=== PATIENT | female | born 1975 | race Caucasian/White ===

== ENCOUNTER 2018-06-02 22:24 | Emergency (ER) | payer BC ==
[~2018-06-02] VITALS: Ht 165.1 cm; Wt 55.3 kg
[2018-06-02] MEDS ORDERED: NKM (22:38)
[2018-06-02 22:45] VITALS: BP 155/97
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
[2018-06-02] MEDS ORDERED: IBUPROFEN600 MG ORAL (23:07)
[2018-06-02 23:16] VITALS: BP 136/89
--- NOTE | 2018-06-02 23:16 | NUR ---
ER Nurse Note: Pt seen, treated, medically cleared for discharge by ERMD. Discharge instructions and prescriptions given with repeat verbalizaion by pt. Instructed pt to follow up with primary care physcian within one week. Pt a&ox4, VSS, no signs of distress. ID band removed. Pt left with all belongings, steady gait via own transporation.
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
== END 2018-06-02 23:16 | disposition home or self-care (01) ==
LOC: EMR 22:44
DX: S43.102A Unspecified dislocation of left acromioclavicular joint, initial encounter (principal); V43.62XA Car passenger injured in collision with other type car in traffic accident, initial encounter; Y92.410 Unspecified street and highway as the place of occurrence of the external cause
CPT/HCPCS: 99283

== ENCOUNTER 2018-10-12 02:46 | Emergency (ER) | payer BC ==
[~2018-10-12] VITALS: Ht 170.2 cm; Wt 49.9 kg
[~2018-10-12 02:46] MED LIST: IBUPROFEN600 MG ORAL; NKM
[2018-10-12] MEDS ORDERED: PROGESTERO50 MG/1 M1 IM (02:55)
[2018-10-12 03:00] VITALS: BP 155/96
--- NOTE | 2018-10-12 03:00 | NUR ---
ED Nurse Note: patient ambulated to ed c/o heavy vaginal bleeding (5 pads )x 0200. pt 6 weeks . pt had intravaginal ultrasound this morning. PT AAO X4, VSS, WITH NO SIGNS OF ACUT DISRESS. FAMILY MEMBER AT BEDSIDE.
--- NOTE | 2018-10-12 03:15 | NUR ---
ED Nurse Note: URINE COLLECTED SET DOWN TO LAB
--- NOTE | 2018-10-12 03:19 | Emergency Room Report ---
History of Present Illness General Chief Complaint: Complications Source: Patient Present Illness HPI Patient reports that she is approximately 6 weeks by an ultrasound that was done this morning vaginally by her OB physician Patient was doing well however earlier this evening started having increased vaginal bleeding She was also having some mild cramping in the lower abdomen and presents to the ER upon arrival reports that she feels somewhat better denies any chest pain or shortness of breath Denies any active abdominal pain she reports of vaginal bleeding is also decreased patient is G1, P0 and reports that she is with twins Allergies: Coded Allergies: No Known Allergies (Unverified , 06/02/18) Patient History Past Medical History: see triage record Now: Yes - 6 weeks Reviewed Nursing Documentation: PMH: Agreed; PSxH: Agreed Nursing Documentation-PMH Past Medical History: No Stated History Review of Systems All Other Systems: negative except mentioned in HPI Physical Exam Vital Signs Date Time Temp Pulse Resp B/P (MAP) Pulse Ox O2 Delivery O2 Flow Rate FiO2 10/12/18 02:50 98.8 82 22 155/96 (115) 97 Room Air Sp02 EP Interpretation: reviewed, normal General Appearance: well appearing, no apparent distress Head: normocephalic, atraumatic Eyes: bilateral eye PERRL, bilateral eye EOMI ENT: hearing grossly normal, normal pharynx, TMs + canals normal, uvula midline Neck: full range of motion, supple, no meningismus, no bony tend Respiratory: lungs clear, normal breath sounds, no rhonchi, no respiratory distress, no retraction, no accessory muscle use Cardiovascular #1: normal peripheral pulses, regular rate, rhythm, no edema, no gallop, no JVD, no murmur Gastrointestinal: normal bowel sounds, non tender, soft, no mass, no organomegaly, non-distended, no guarding, no hernia, no pulsatile mass, no rebound Genitourinary: no CVA tenderness Musculoskeletal: normal inspection Neurologic: oriented x3, responsive, real estate investment analyst III-XII nml as tested, motor strength/ tone normal, sensory intact Psychiatric: mood/affect normal Skin: no rash Lymphatic: normal inspection, no adenopathy Medical Decision Making Diagnostic Impression: Primary Impression: Threatened ER Course With the patient's history and examination, multiple differentials considered, including but not limited to , ectopic , ovarian torsion, gastritis, cholecystitis, pancreatitis, appendicitis Patient's ultrasound reveals twin gestational sac appropriately placed heart tones are seen patient's blood type is A+ not requiring any further RhoGam It was discussed regarding the possibility of signs of early Patient requires bedrest and follow-up urgently with OB physician Labs Test 10/12/18 03:58 10/12/18 04:04 White Blood Count 12.6 K/UL (4.8-10.8) Red Blood Count 4.61 M/UL (4.20-5.40) Hemoglobin 14.3 G/DL (12.0-16.0) Hematocrit 43.0 % (37.0-47.0) Mean Corpuscular Volume 93 FL (80-99) Mean Corpuscular Hemoglobin 31.0 PG (27.0-31.0) Mean Corpuscular Hemoglobin Concent 33.3 G/DL (32.0-36.0) Red Cell Distribution Width 11.5 % (11.6-14.8) Platelet Count 327 K/UL (150-450) Mean Platelet Volume 6.0 FL (6.5-10.1) Neutrophils (%) (Auto) 64.6 % (45.0-75.0) Lymphocytes (%) (Auto) 21.7 % (20.0-45.0) Monocytes (%) (Auto) 9.1 % (1.0-10.0) Eosinophils (%) (Auto) 3.7 % (0.0-3.0) Basophils (%) (Auto) 1.0 % (0.0-2.0) Sodium Level 137 MMOL/L (136-145) Potassium Level 4.7 MMOL/L (3.5-5.1) Chloride Level 104 MMOL/L (98-107) Carbon Dioxide Level 20 MMOL/L (21-32) Anion Gap 13 mmol/L (5-15) Blood Urea Nitrogen 7 mg/dL (7-18) Creatinine 0.3 MG/DL (0.55-1.30) Estimat Glomerular Filtration Rate > 60 mL/min (>60) Glucose Level 103 MG/DL (74-106) Calcium Level 9.2 MG/DL (8.5-10.1) Total Bilirubin 0.5 MG/DL (0.2-1.0) Aspartate Amino Transf (AST/SGOT) 41 U/L (15-37) Alanine Aminotransferase (ALT/SGPT) 26 U/L (12-78) Total Protein 8.0 G/DL (6.4-8.2) Albumin 3.9 G/DL (3.4-5.0) Globulin 4.1 g/dL Albumin/Globulin Ratio 1.0 (1.0-2.7) Lipase 145 U/L (73-393) Human Chorionic Gonadotropin, Quant [id number] mIU/mL (1-6) Urine Color Pale yellow Urine Appearance Slightly cloudy Urine pH 5 (4.5-8.0) Urine Specific [place] 1.010 (1.005-1.035) Urine Protein 2+ (NEGATIVE) Urine Glucose (UA) Negative (NEGATIVE) Urine Ketones Negative (NEGATIVE) Urine Blood 5+ (NEGATIVE) Urine Nitrite Negative (NEGATIVE) Urine Bilirubin Negative (NEGATIVE) Urine Urobilinogen Normal MG/DL (0.0-1.0) Urine Leukocyte Esterase Negative (NEGATIVE) Urine RBC Tntc /HPF (0 - 2) Urine WBC 0-2 /HPF (0 - 2) Urine Squamous Epithelial Cells Few /LPF (NONE/OCC) Urine Bacteria Few /HPF (NONE) CT/MRI/US Diagnostic Results CT/MRI/US Diagnostic Results : Impression Pelvic ultrasound: Twin gestational sac seen heart tones seen Last Vital Signs Date Time Temp Pulse Resp B/P (MAP) Pulse Ox O2 Delivery O2 Flow Rate FiO2 10/12/18 02:50 98.8 82 22 155/96 (115) 97 Room Air Status: improved Disposition: HOME, SELF-CARE Condition: Improved Referrals: NON PHYSICIAN (PCP) Additional Instructions: Patient is provided with the discharge instructions notified to follow up with primary doctor in the next 2-3 days otherwise return to the er with any worsening symptoms. Please note that this report is being documented using [employer] technology. This can lead to erroneous entry secondary to incorrect interpretation by the dictating instrument. Garry Taylor DO Oct 12, 2018 03:19
--- NOTE | 2018-10-12 03:20 | NUR ---
ED Nurse Note: PT SENT TO [facility].
--- NOTE | 2018-10-12 03:45 | NUR ---
ED Nurse Note: PT BACK FROM US, AMBULATE STEADY GAIT, NAD, REATTACHED TO MONITOR, VSS.
--- NOTE | 2018-10-12 03:50 | NUR ---
ED Nurse Note: IV ACCESS ESTABLISHED, BLOOD COLLECTED, SENT TO LAB
[2018-10-12 04:09] VITALS: BP 160/88
[2018-10-12 04:13] LABS: APPEARANCE,URINE SLIGHTLY CLOUDY; BILIRUBIN, URINE NEGATIVE (NEGATIVE); COLOR,URINE PALE YELLOW; GLUCOSE, URINE (UA) NEGATIVE (NEGATIVE); KETONES,URINE NEGATIVE (NEGATIVE); LEUKOCYTE ESTERASE ,URINE NEGATIVE (NEGATIVE); NITRITE,URINE NEGATIVE (NEGATIVE); PH,URINE 5 (4.5-8.0); PROTEIN,URINE 2+ (NEGATIVE); UROBILINOGEN,URINE NORMAL MG/DL (0.0-1.0)
[2018-10-12 04:22] VITALS: BP 160/88
--- NOTE | 2018-10-12 04:22 | NUR ---
ER DISCHARGE NOTE: Patient is cleared to be discharged per ERMD, pt is aox4, on room air, with stable vital signs. Accompanied by family member. pt was given dc and prescription instructions, pt was able to verbalize understanding, pt id band and iv site removed without complications. pt is able to ambulate with steady gait. pt took all belongings.
[2018-10-12 04:31] LABS: EOSINOPHILS % (AUTO) 3.7 % (0.0-3.0); HEMOGLOBIN 14.3 G/DL (12.0-16.0); LYMPHOCYTES % (AUTO) 21.7 % (20.0-45.0); MEAN CORPUSCULAR VOLUME 93 FL (80-99); MONOCYTES % (AUTO) 9.1 % (1.0-10.0); NEUTROPHILS % (AUTO) 64.6 % (45.0-75.0); PLATELET COUNT 327 K/UL (150-450); RED BLOOD COUNT 4.61 M/UL (4.20-5.40); RED CELL DISTRIBUTION WIDTH 11.5 % (11.6-14.8); WHITE BLOOD COUNT 12.6 K/UL (4.8-10.8)
--- NOTE | 2018-10-12 04:51 | Diagnostic Imaging Report ---
Indication: with vaginal bleeding. Beta hCG [id number] Technique: Transabdominal pelvic ultrasound was performed with duplex Doppler. Findings: Please note the exam is diagnostically limited without transvaginal probe images. Uterus: Uterus is anteverted, measuring 8.6 x 5.6 x 7 cm. There are twin intrauterine pregnancies. Cervix is closed. Between the gestational sacs, there is an ill-defined hypoechoic structure. Twin A: pole is identified, with crown-rump length of 4 mm, corresponding to gestational age of 6 weeks, one day. heart rate is approximately 144 bpm. Twin B: pole is identified, with a crown-rump length of 4.5 mm, corresponding to a gestational age of 6 weeks, one day. heart rate is 150bpm. Right ovary: Right ovary measures 2.8 x 1.7 x 2.8 cm. No masses identified. Vascular flow is confirmed with Doppler images. Left ovary: Left ovary measures 3.3 x 1.7 cm. Vascular flow is confirmed with Doppler images. No mass is identified. Impression: Limited examination absence of transvaginal images. 1. Viable twin intrauterine pregnancies, with gestational ages of approximately 6 weeks, one day. 2. Ill-defined hypoechoic structure between gestational sacs which may represent subchorionic hematoma.
[2018-10-12 04:58] LABS: ANION GAP 13 mmol/L (5-15); BLOOD UREA NITROGEN 7 mg/dL (7-18); CALCIUM 9.2 MG/DL (8.5-10.1); CARBON DIOXIDE 20 MMOL/L (21-32); CHLORIDE 104 MMOL/L (98-107); CREATININE 0.3 MG/DL (0.55-1.30); POTASSIUM 4.7 MMOL/L (3.5-5.1); SODIUM 137 MMOL/L (136-145)
[2018-10-12 05:00] LABS: ALANINE AMINOTRANSFERASE 26 U/L (12-78); ALBUMIN 3.9 G/DL (3.4-5.0); ASPARTATE AMINO TRANSFERASE 41 U/L (15-37); BILIRUBIN,TOTAL 0.5 MG/DL (0.2-1.0)
[2018-10-12 05:49] LABS: ALKALINE PHOSPHATASE 46 U/L (46-116)
== END 2018-10-12 04:22 | disposition home or self-care (01) ==
LOC: EMR 03:18
DX: O20.0 Threatened abortion (principal); Z3A.01 Less than 8 weeks gestation of pregnancy
CPT/HCPCS: 36415; 76802; 80053; 81003; 83690; 84702; 85025; 86850; 86900; 86901; 96360; 99284